=== PATIENT | male | born 1975 | race Caucasian/White ===

== ENCOUNTER 2016-08-01 16:44 | Emergency (ER) | payer BC ==
[~2016-08-01] VITALS: Wt 108.9 kg
[~2016-08-01 16:44] MED LIST: AUGMENTIN 875 M1 TAB PO; CEPHALEXIN500 M1 PO; CIPRODEX 0.3%-7.5 ML OT; CLARITIN10 MG PO; CLINDAMYCIN HC300 MG PO; ZOFRAN ODT4 MG SL
[2016-08-01] MEDS ORDERED: NAPROSYN500 MG PO (18:47)
== END 2016-08-01 18:46 | disposition home or self-care (01) ==
LOC: ED 16:44
DX: M79.671 Pain in right foot (principal); Z88.1 Allergy status to other antibiotic agents; Z88.2 Allergy status to sulfonamides